=== PATIENT | female | born 1940 | race Caucasian/White ===

== ENCOUNTER 2021-01-06 12:19 | Emergency (ER) | payer MEDICARE ==
[2021-01-06 13:00] LABS: #Eosinphils 0.3 thou/uL (0.0-0.7); #Lymphocytes 2.1 thou/uL (1.20-3.40); #Monocytes 0.7 thou/uL (0.11-0.59); #Neutrophils 6.8 thou/uL (1.40-6.50); %Basophils 0.4 % (0.0-1.0); %Eosinophils 2.6 % (0.0-10.0); %Lymphocytes 21.3 % (21.0-51.0); %Neutrophils 68.8 % (42.0-75.0); Hemoglobin 10.7 g/dL (12.0-16.0); Mean Corpuscular Hemoglobin 26.6 pg (27.0-31.0); Mean Corpuscular Volume 83.1 fL (78.0-98.0); Mean Platelet Volume 6.6 fL (7.4-10.4); Platelet Count 315 thou/uL (130-400); RBC Distribution Width 13.6 % (11.5-14.5); Red Blood Cell (RBC) Count 4.01 mill/uL (4.20-5.40); White Blood Cell (WBC) Count 9.9 thou/uL (4.8-10.8)
[2021-01-06] MEDS ORDERED: Lorazepam 2 MG/ML VIAL ONE (13:03)
[2021-01-06] MEDS ORDERED: Ketorolac Tromethamine 30 MG/ML VIAL ONE (13:04)
[2021-01-06 13:20] LABS: ALT (SGPT) 7 U/L (8-55); AST (SGOT) 12 U/L (5-34); Albumin 3.3 g/dL (3.4-4.8); Alkaline Phosphatase 32 U/L (40-110); Anion Gap 14 mmol/L (10-20); BUN (Urea Nitrogen) 7 mg/dL (9.8-20.1); Bilirubin, Total 0.5 mg/dL (0.2-1.2); Calc. Creatinine Clearance 0 mL/min (70-130); Calcium 9.1 mg/dL (7.8-10.44); Carbon Dioxide 24 mmol/L (23-31); Chloride 103 mmol/L (98-107); Glucose 158 mg/dL (83-110); Potassium 3.9 mmol/L (3.5-5.1); Protein, Total 6.3 g/dL (5.8-8.1); Sodium 137 mmol/L (136-145)
[2021-01-06] MEDS ORDERED: Apixaban 5 MG TAB PO SCH (15:15)
== END 2021-01-06 15:34 | disposition home or self-care (01) ==
LOC: ERS 12:19
DX: I82.411 Acute embolism and thrombosis of right femoral vein (principal); I82.431 Acute embolism and thrombosis of right popliteal vein; I82.441 Acute embolism and thrombosis of right tibial vein; E11.9 Type 2 diabetes mellitus without complications; E78.00 Pure hypercholesterolemia, unspecified; Z87.891 Personal history of nicotine dependence; Z79.82 Long term (current) use of aspirin; Z79.84 Long term (current) use of oral hypoglycemic drugs; Z79.899 Other long term (current) drug therapy
CPT/HCPCS: 36415; 72170; 80053; 85025; 96374; 96375; J1885; J2060

== ENCOUNTER 2021-01-08 22:55 | Inpatient (IN) | payer MEDICARE ==
[2021-01-09 01:04] LABS: #Basophils 0.1 thou/uL (0.0-0.2); #Eosinphils 0.2 thou/uL (0.0-0.7); #Lymphocytes 1.6 thou/uL (1.20-3.40); #Monocytes 0.8 thou/uL (0.11-0.59); #Neutrophils 7.6 thou/uL (1.40-6.50); %Basophils 0.5 % (0.0-1.0); %Eosinophils 1.7 % (0.0-10.0); %Lymphocytes 15.4 % (21.0-51.0); %Monocytes 8.1 % (0.0-10.0); %Neutrophils 74.3 % (42.0-75.0); Hemoglobin 11.2 g/dL (12.0-16.0); Mean Corpuscular HGB CONC 32.6 g/dL (32.0-36.0); Mean Corpuscular Hemoglobin 26.7 pg (27.0-31.0); Mean Corpuscular Volume 81.8 fL (78.0-98.0); Mean Platelet Volume 6.9 fL (7.4-10.4); Platelet Count 308 thou/uL (130-400); RBC Distribution Width 13.7 % (11.5-14.5); Red Blood Cell (RBC) Count 4.19 mill/uL (4.20-5.40); White Blood Cell (WBC) Count 10.2 thou/uL (4.8-10.8)
[2021-01-09 01:14] LABS: INR-International Normal Ratio 1.4; Prothrombin Time 17.7 sec (12.0-14.7)
[2021-01-09 01:15] LABS: PTT 37.8 sec (22.9-36.1)
[2021-01-09 01:24] LABS: ALT (SGPT) Less than 7 U/L (8-55); AST (SGOT) 13 U/L (5-34); Albumin 3.4 g/dL (3.4-4.8); Alkaline Phosphatase 31 U/L (40-110); Anion Gap 12 mmol/L (10-20); BUN (Urea Nitrogen) 7 mg/dL (9.8-20.1); Bilirubin, Total 0.6 mg/dL (0.2-1.2); Calc. Creatinine Clearance 0 mL/min (70-130); Calcium 9.3 mg/dL (7.8-10.44); Carbon Dioxide 26 mmol/L (23-31); Chloride 102 mmol/L (98-107); Globulin 3.2 g/dL (2.4-3.5); Glucose 179 mg/dL (83-110); Potassium 3.7 mmol/L (3.5-5.1); Protein, Total 6.6 g/dL (5.8-8.1); Sodium 136 mmol/L (136-145)
[2021-01-09] MEDS ORDERED: Morphine 2 MG/ML VIAL ONE ×2 (03:33→08:31)
[2021-01-09] MEDS ORDERED: Ondansetron PF 4 MG/2 ML Vial ONE (03:48)
[2021-01-09] MEDS ORDERED: cefTRIAXone\\ROCEPHIN 2 GM VIAL ONE (08:31)
[2021-01-09] MEDS ORDERED: traMADol HCl 50 MG TAB PO PRN (08:32)
[2021-01-09] MEDS ORDERED: HumaLOG 300 UNITS/3 ML VIAL SC PRN ×2 (08:34)
[2021-01-09] MEDS ORDERED: Dextrose 50% Abboject 50 ML SYRINGE SLOW IVP PRN (08:34)
[2021-01-09] MEDS ORDERED: Dextrose 5% in Water 1,000 ML IV PRN (08:34)
[2021-01-09] MEDS ORDERED: hydrALAZINE 20 MG/ML VIAL SLOW IVP PRN (08:35)
[2021-01-09 09:11] LABS: Bilirubin Negative (Negative); Blood, Urine Negative (Negative); Clarity Clear (Clear); Glucose, Urine (Dipstick) 100 mg/dL (Negative); Ketone, Urine Negative (Negative); Leukocyte Negative Leu/uL (Negative); Nitrite Negative (Negative); Protein, Urine (Dipstick) Negative (Neg-Trace); Specific Gravity, Urine 1.019 (1.002-1.036); Urobilinogen Normal mg/dL (Less than 2)
[2021-01-09] MEDS ORDERED: Iopamidol-370 76% 500 ML 1 ML ONE (09:56)
[2021-01-09] MEDS ORDERED: Ondansetron ODT 4 MG TAB PO PRN (10:15)
[2021-01-09] MEDS ORDERED: Acetaminophen 325 MG TAB PO PRN (10:15)
[2021-01-09] MEDS ORDERED: Cyclobenzaprine 10 MG TAB PO SCH (10:15)
[2021-01-09] MEDS ORDERED: Cyclobenzaprine 10 MG TAB ONE (10:44)
[2021-01-09] MEDS ORDERED: Acetaminophen 500 MG TAB ONE (10:44)
[2021-01-09] MEDS: Acetaminophen 500 MG TAB PO SCH (10:53)
[2021-01-09 11:24] LABS: SARS-CoV-2 NAA Rapid Test Not Detected (NotDetected)
[2021-01-09 18:46] VITALS: BMI 22.6
[2021-01-10] MEDS: Acetaminophen 500 MG TAB PO SCH ×6 (00:46→20:59)
[2021-01-10 05:07] LABS: #Basophils 0.1 thou/uL (0.0-0.2); #Eosinphils 0.2 thou/uL (0.0-0.7); #Lymphocytes 1.6 thou/uL (1.20-3.40); #Monocytes 0.8 thou/uL (0.11-0.59); #Neutrophils 5.8 thou/uL (1.40-6.50); %Basophils 0.6 % (0.0-1.0); %Eosinophils 2.5 % (0.0-10.0); %Lymphocytes 18.7 % (21.0-51.0); %Monocytes 9.1 % (0.0-10.0); %Neutrophils 69.1 % (42.0-75.0); Hemoglobin 11.2 g/dL (12.0-16.0); Mean Corpuscular HGB CONC 29.4 g/dL (32.0-36.0); Mean Corpuscular Hemoglobin 24.2 pg (27.0-31.0); Mean Corpuscular Volume 82.2 fL (78.0-98.0); Mean Platelet Volume 7.1 fL (7.4-10.4); Platelet Count 338 thou/uL (130-400); RBC Distribution Width 13.6 % (11.5-14.5); Red Blood Cell (RBC) Count 4.62 mill/uL (4.20-5.40); White Blood Cell (WBC) Count 8.4 thou/uL (4.8-10.8)
[2021-01-10 05:23] LABS: Anion Gap 12 mmol/L (10-20); BUN (Urea Nitrogen) 7 mg/dL (9.8-20.1); Calc. Creatinine Clearance 80 mL/min (70-130); Calcium 9.3 mg/dL (7.8-10.44); Carbon Dioxide 29 mmol/L (23-31); Chloride 101 mmol/L (98-107); Glucose 162 mg/dL (83-110); Potassium 3.1 mmol/L (3.5-5.1); Sodium 139 mmol/L (136-145)
[2021-01-10] MEDS: traMADol HCl 50 MG TAB PO PRN ×2 (05:59→16:36)
[2021-01-10] MEDS: Apixaban 5 MG TAB PO SCH ×2 (09:25→20:59)
[2021-01-10] MEDS: Aspirin 81 mg Enteric Coated Tablet PO SCH (09:25)
[2021-01-11] MEDS: traMADol HCl 50 MG TAB PO PRN (02:28)
[2021-01-11] MEDS: Acetaminophen 500 MG TAB PO SCH ×3 (04:11→15:01)
[2021-01-11] MEDS: Apixaban 5 MG TAB PO SCH (09:22)
[2021-01-11] MEDS: Aspirin 81 mg Enteric Coated Tablet PO SCH (09:22)
[2021-01-11 15:40] VITALS: BP 126/59; TEMP 97.6
[2021-01-17] MEDS ORDERED: Apixaban 5 MG TAB PO SCH (09:00)
== END 2021-01-11 16:27 | DRG 552 ==
LOC: ERS 22:55 → ERHOLD 01-09 07:46 → 2NO 01-09 18:34 → OBSVTOIN 01-11 12:52
PROVIDERS: ADMIT Internal Medicine; ATTEND Internal Medicine
DX: M47.812 Spondylosis without myelopathy or radiculopathy, cervical region (principal); I82.411 Acute embolism and thrombosis of right femoral vein; I82.431 Acute embolism and thrombosis of right popliteal vein; Z20.822 Contact with and (suspected) exposure to COVID-19; I10 Essential (primary) hypertension; E11.9 Type 2 diabetes mellitus without complications; E78.5 Hyperlipidemia, unspecified; K21.9 Gastro-esophageal reflux disease without esophagitis; R35.0 Frequency of micturition; I16.0 Hypertensive urgency; R51.9 Headache, unspecified; Z79.899 Other long term (current) drug therapy; Z79.82 Long term (current) use of aspirin; Z79.01 Long term (current) use of anticoagulants; Z79.84 Long term (current) use of oral hypoglycemic drugs; Z90.49 Acquired absence of other specified parts of digestive tract; Z90.710 Acquired absence of both cervix and uterus; Z87.891 Personal history of nicotine dependence; Z88.1 Allergy status to other antibiotic agents
CPT/HCPCS: 36415; 36416; 70450; 70496; 72125; 80048; 80053; 81003; 85025; 85610; 85730; 86850; 86900; 86901; 96365; 96375; 96376; G0378; J0696; J1815; J2270; J2405; Q9967; U0002

== ENCOUNTER 2023-05-11 23:09 | Inpatient (IN) | payer MEDICARE ==
[2023-05-12 00:21] VITALS: BMI 24.0
[2023-05-12] MEDS ORDERED: Morphine 2 MG/ML VIAL SLOW IVP PRN (01:05)
[2023-05-12] MEDS ORDERED: Acetaminophen 500 MG TAB PO SCH (01:15)
[2023-05-12] MEDS: fentaNYL 50 mcg/mL 1 mL Vial SLOW IVP PRN (02:11)
[2023-05-12 04:58] LABS: #Eosinphils 0.1 thou/uL (0.0-0.7); #Monocytes 1.1 thou/uL (0.11-0.59); #Neutrophils 6.3 thou/uL (1.40-6.50); %Basophils 0.2 % (0.0-1.0); %Eosinophils 0.5 % (0.0-10.0); %Monocytes 10.9 % (0.0-10.0); %Neutrophils 64.1 % (42.0-75.0); Hematocrit 27.9 % (36.0-47.0); Hemoglobin 8.8 g/dL (12.0-16.0); Mean Corpuscular HGB CONC 31.5 g/dL (32.0-36.0); Mean Corpuscular Hemoglobin 25.5 pg (27.0-31.0); Mean Corpuscular Volume 80.9 fl (78.0-98.0); Mean Platelet Volume 9.4 fL (7.4-10.4); Platelet Count 233 10x3/uL (130-400); RBC Distribution Width 14.6 % (11.5-14.5); Red Blood Cell (RBC) Count 3.45 mill/uL (4.20-5.40); White Blood Cell (WBC) Count 9.8 10x3/uL (4.8-10.8)
[2023-05-12 05:28] LABS: Anion Gap 14 mmol/L (10-20); BUN (Urea Nitrogen) 15 mg/dL (9.8-20.1); Calc. Creatinine Clearance 64 mL/min (70-130); Calcium 8.2 mg/dL (7.8-10.44); Carbon Dioxide 23 mmol/L (23-31); Chloride 100 mmol/L (98-107); Estimated GFR 83; Glucose 159 mg/dL (83-110); Sodium 133 mmol/L (136-145)
[2023-05-12] MEDS ORDERED: Ipratropium/Albuterol 3 ML NEB NEB PRN (07:29)
[2023-05-12] MEDS ORDERED: Ondansetron ODT 4 MG TAB PO PRN (07:29)
[2023-05-12] MEDS ORDERED: Ondansetron PF 4 MG/2 ML Vial IVP PRN (07:29)
[2023-05-12] MEDS: Famotidine/PF 20 mg/2ml Vial SLOW IVP SCH (08:02)
[2023-05-12] MEDS: Sodium Chloride 0.9% 1,000 ML IV SCH (08:02)
[2023-05-12] MEDS ORDERED: Dextrose 5% in Water 1,000 ML IV PRN (08:21)
[2023-05-12] MEDS ORDERED: HumaLOG 300 UNITS/3 ML VIAL SC PRN (08:21)
[2023-05-12] MEDS ORDERED: Glucagon 1 MG/ML KIT IM PRN (08:21)
[2023-05-12] MEDS ORDERED: Dextrose 50% Abboject 50 ML SYRINGE SLOW IVP PRN (08:21)
[2023-05-12] MEDS ORDERED: CEFAZOLIN 2 GM in Sodium Chloride 0.9% 100 ML IVPB SCH (10:00)
[2023-05-12] MEDS: Cyclobenzaprine 10 MG TAB PO PRN (10:41)
[2023-05-12] MEDS: traMADol HCl 50 MG TAB PO SCH (13:22)
[2023-05-12] MEDS ORDERED: CEFAZOLIN 2 GM VIAL ONE (13:42)
[2023-05-12] MEDS ORDERED: Sodium Chloride 0.9% 100 ML ONE (13:42)
[2023-05-12] MEDS ORDERED: PROPOFOL 20 ML ONE (14:01)
[2023-05-12] MEDS ORDERED: fentaNYL 50 mcg/mL 1 mL Vial ONE ×4 (14:45→16:38)
[2023-05-12] MEDS ORDERED: Ondansetron PF 4 MG/2 ML Vial ONE (15:56)
[2023-05-12] MEDS ORDERED: ePHEDrine Sulfate 50 MG/10 ML VIAL ONE (16:04)
[2023-05-12] MEDS ORDERED: Promethazine HCl 25 MG/ML VIAL IM PRN (16:19)
[2023-05-12] MEDS ORDERED: Ondansetron HCl/PF 4 MG/2 ML Vial IVP PRN (16:19)
[2023-05-12] MEDS: Ferrous Sulfate 325 MG TAB PO SCH (17:08)
[2023-05-12] MEDS: Ascorbic Acid 500 mg Chewable Tablet PO SCH (20:56)
[2023-05-12] MEDS: Senokot S 8.6-50 MG TAB PO SCH (20:57)
[2023-05-12] MEDS: CEFAZOLIN 2 GM in Sodium Chloride 0.9% 100 ML IVPB SCH (21:32)
[2023-05-13] MEDS: traMADol HCl 50 MG TAB PO PRN (05:21)
[2023-05-13 05:43] LABS: %Basophils 0.1 % (0.0-1.0); %Eosinophils 0.1 % (0.0-10.0); %Lymphocytes 11.3 % (21.0-51.0); %Neutrophils 77.2 % (42.0-75.0); Hematocrit 24.2 % (36.0-47.0); Hemoglobin 7.5 g/dL (12.0-16.0); Mean Platelet Volume 9.7 fL (7.4-10.4); Platelet Count 194 10x3/uL (130-400); RBC Distribution Width 14.9 % (11.5-14.5); Red Blood Cell (RBC) Count 2.88 mill/uL (4.20-5.40); White Blood Cell (WBC) Count 9.1 10x3/uL (4.8-10.8)
[2023-05-13 06:20] LABS: Anion Gap 10 mmol/L (10-20); BUN (Urea Nitrogen) 10 mg/dL (9.8-20.1); Calc. Creatinine Clearance 76 mL/min (70-130); Calcium 7.9 mg/dL (7.8-10.44); Carbon Dioxide 25 mmol/L (23-31); Chloride 106 mmol/L (98-107); Estimated GFR 89; Glucose 188 mg/dL (83-110); Potassium 3.7 mmol/L (3.5-5.1); Sodium 137 mmol/L (136-145)
[2023-05-13] MEDS ORDERED: Cyclobenzaprine 10 MG TAB PO PRN (08:28)
[2023-05-13] MEDS: Gabapentin 100 MG CAP PO SCH (09:35)
[2023-05-13] MEDS: Polyethylene Glycol 3350 17 GM Packet PO SCH (09:38)
[2023-05-13] MEDS: Ketorolac Tromethamine 30 MG (1 mL) VIAL IVP SCH (13:49)
[2023-05-13] MEDS: Senokot S 8.6-50 MG TAB PO SCH (21:40)
[2023-05-14 04:27] LABS: #Eosinphils 0.1 thou/uL (0.0-0.7); #Monocytes 1.1 thou/uL (0.11-0.59); #Neutrophils 6.4 thou/uL (1.40-6.50); %Basophils 0.1 % (0.0-1.0); %Eosinophils 0.7 % (0.0-10.0); %Monocytes 11.4 % (0.0-10.0); %Neutrophils 65.6 % (42.0-75.0); Hematocrit 20.6 % (36.0-47.0); Hemoglobin 6.4 g/dL (12.0-16.0); Mean Corpuscular HGB CONC 31.1 g/dL (32.0-36.0); Mean Corpuscular Hemoglobin 26.4 pg (27.0-31.0); Mean Corpuscular Volume 85.1 fl (78.0-98.0); Mean Platelet Volume 9.6 fL (7.4-10.4); Platelet Count 163 10x3/uL (130-400); RBC Distribution Width 14.6 % (11.5-14.5); Red Blood Cell (RBC) Count 2.42 mill/uL (4.20-5.40); White Blood Cell (WBC) Count 9.7 10x3/uL (4.8-10.8)
[2023-05-14] MEDS: Polyethylene Glycol 3350 17 GM Packet PO SCH (11:13)
[2023-05-15 08:06] LABS: #Eosinphils 0.3 thou/uL (0.0-0.7); #Monocytes 0.9 thou/uL (0.11-0.59); #Neutrophils 5.9 thou/uL (1.40-6.50); %Basophils 0.1 % (0.0-1.0); %Eosinophils 3.3 % (0.0-10.0); %Lymphocytes 19.6 % (21.0-51.0); %Monocytes 9.9 % (0.0-10.0); %Neutrophils 66.9 % (42.0-75.0); Hemoglobin 7.6 g/dL (12.0-16.0); Mean Corpuscular HGB CONC 31.7 g/dL (32.0-36.0); Mean Corpuscular Volume 85.1 fl (78.0-98.0); Mean Platelet Volume 9.8 fL (7.4-10.4); Platelet Count 178 10x3/uL (130-400); RBC Distribution Width 14.9 % (11.5-14.5); Red Blood Cell (RBC) Count 2.82 mill/uL (4.20-5.40); White Blood Cell (WBC) Count 8.8 10x3/uL (4.8-10.8)
[2023-05-15] MEDS ORDERED: Non-Formulary Item 1 EACH (Atorvastatin Calcium [Atorvastatin Calcium] 80 MG Tablet) PO SCH (09:00)
[2023-05-15] MEDS ORDERED: Non-Formulary Item 1 EACH (Lisinopril/Hydrochlorothiazide [Lisinopril-Hctz 10-12.5 Mg Tab PO SCH (09:00)
[2023-05-15] MEDS: Apixaban 5 MG TAB PO SCH (09:39)
[2023-05-15] MEDS: CO Q-10 CAPSULE 100 MG PO SCH (09:39)
[2023-05-15] MEDS: Hydrochlorothiazide 25 MG TAB PO SCH (09:40)
[2023-05-15] MEDS: Lisinopril 5 MG TAB PO SCH (09:40)
[2023-05-15 11:45] VITALS: TEMP 99
[2023-05-15] MEDS: Acetaminophen 500 MG TAB PO PRN (12:30)
[2023-05-15 15:27] VITALS: BP 146/70
[2023-05-15] MEDS ORDERED: Atorvastatin Calcium 40 MG TAB PO SCH (21:00)
== END 2023-05-15 20:30 | DRG 481 ==
LOC: SURG A 23:55
PROVIDERS: ADMIT Surgery; ATTEND Surgery
PROC: 0QSB04Z Reposition Right Lower Femur with Internal Fixation Device, Open Approach (ICD-10-PCS; principal; 2023-05-12)
PROC: 3E033XZ Introduction of Vasopressor into Peripheral Vein, Percutaneous Approach (ICD-10-PCS; 2023-05-12)
PROC: 30233N1 Transfusion of Nonautologous Red Blood Cells into Peripheral Vein, Percutaneous Approach (ICD-10-PCS; 2023-05-14)
DX: M97.01XA Periprosthetic fracture around internal prosthetic right hip joint, initial encounter (principal); D62 Acute posthemorrhagic anemia; G89.11 Acute pain due to trauma; W18.30XA Fall on same level, unspecified, initial encounter; E11.9 Type 2 diabetes mellitus without complications; I10 Essential (primary) hypertension; K21.9 Gastro-esophageal reflux disease without esophagitis; Z90.710 Acquired absence of both cervix and uterus; Y92.040 Kitchen in boarding-house as the place of occurrence of the external cause; Z90.49 Acquired absence of other specified parts of digestive tract; Z98.890 Other specified postprocedural states
CPT/HCPCS: 36415; 36416; 36430; 80048; 85025; 85730; 86850; 86900; 86901; 93005; 93010; 96374; 96375; J1885; J2270; J2405; J2704; J3010; J3490; J7050; P9016; S0028

== ENCOUNTER → 2023-12-27 | Day surgery (SDC) | payer MEDICARE | LOC: BICULT 12:22 | PROVIDERS: ATTEND Internal Medicine | PROC: 0H9T3ZX Drainage of Right Breast, Percutaneous Approach, Diagnostic (ICD-10-PCS; principal; 2023-12-27) | DX: C50.811 Malignant neoplasm of overlapping sites of right female breast (principal) | CPT/HCPCS: 19083; 88305; 88341; 88342; 88360; 88361 ==

== ENCOUNTER 2024-02-11 06:49 | Day surgery (SDC) | payer MEDICARE ==
[2024-02-06 12:58] VITALS: BMI 26.5
[2024-02-11] MEDS ORDERED: PROPOFOL 40 ML ONE (10:11)
[2024-02-11] MEDS ORDERED: EPINEPHrine 1 MG/ML VIAL ONE (10:11)
[2024-02-11] MEDS ORDERED: Ondansetron PF 4 MG/2 ML Vial ONE (10:11)
[2024-02-11] MEDS ORDERED: fentaNYL PF 100 MCG/2 ML SYRINGE ONE (10:11)
[2024-02-11] MEDS ORDERED: Lidocaine 1% PF 5 ML VIAL ONE (10:11)
[2024-02-11] MEDS ORDERED: Lidocaine 2% PF 5 ML VIAL ONE (10:11)
[2024-02-11] MEDS ORDERED: Dexamethasone 4 mg/ml Vial ONE (10:11)
[2024-02-11] MEDS ORDERED: Bupivacaine 0.25% HCL 30 ML VIAL ONE (10:11)
[2024-02-11] MEDS ORDERED: CEFAZOLIN 2 GM VIAL ONE (10:28)
[2024-02-11] MEDS ORDERED: Propofol 1,000 MG/100 ML VIAL IV ONE (10:54)
[2024-02-11] MEDS ORDERED: fentaNYL 50 mcg/mL 1 mL Vial ONE (12:14)
== END 2024-02-11 13:23 | disposition home or self-care (01) ==
LOC: SDC 06:49
PROVIDERS: ATTEND Surgery
PROC: 0HBT0ZZ Excision of Right Breast, Open Approach (ICD-10-PCS; principal; 2024-02-11)
DX: C50.811 Malignant neoplasm of overlapping sites of right female breast (principal); E11.9 Type 2 diabetes mellitus without complications; D64.9 Anemia, unspecified; Z90.710 Acquired absence of both cervix and uterus; Z90.49 Acquired absence of other specified parts of digestive tract; Z87.891 Personal history of nicotine dependence; Z98.51 Tubal ligation status; Z98.890 Other specified postprocedural states; Z91.048 Other nonmedicinal substance allergy status; Z91.040 Latex allergy status; Z88.1 Allergy status to other antibiotic agents; Z88.2 Allergy status to sulfonamides; Z88.5 Allergy status to narcotic agent; Z79.82 Long term (current) use of aspirin; Z79.84 Long term (current) use of oral hypoglycemic drugs; Z79.899 Other long term (current) drug therapy
CPT/HCPCS: 19281; 19301; 76098; J0171; J0665; J1100; J2405; J2704 ×2; J3010; 88307

== ENCOUNTER 2025-01-01 13:24 | Emergency (ER) | payer MEDICARE ==
[2025-01-01 14:25] LABS: #Basophils 0.04 10x3/uL (0.0-0.2); #Eosinophils 0.13 10x3/uL (0.0-0.7); #Monocytes 0.51 10x3/uL (0.11-0.59); #Neutrophils 6.26 10x3/uL (1.40-6.50); %Basophils 0.4 % (0.0-1.0); %Eosinophils 1.4 % (0.0-10.0); %Lymphocytes 22.7 % (21.0-51.0); %Monocytes 5.7 % (0.0-10.0); %Neutrophils 69.6 % (42.0-75.0); Hematocrit 36.6 % (36.0-47.0); Hemoglobin 11.5 g/dL (12.0-16.0); Mean Corpuscular Hemoglobin 25.7 pg (27.0-31.0); Mean Corpuscular Volume 81.9 fL (78.0-98.0); Platelet Count 288 10x3/uL (130-400); Red Blood Cell (RBC) Count 4.47 mill/uL (4.20-5.40); White Blood Cell (WBC) Count 9.00 10x3/uL (4.8-10.8)
[2025-01-01 14:44] LABS: ALT (SGPT) 10 U/L (Less than 34); AST (SGOT) 19 U/L (11-34); Albumin 3.6 g/dL (3.1-4.5); Alkaline Phosphatase 31 U/L (40-110); Anion Gap 15 mmol/L (10-20); BUN (Urea Nitrogen) 10 mg/dL (9.8-20.1); Bilirubin, Total 0.5 mg/dL (0.3-1.2); Calc. Creatinine Clearance 0 mL/min (70-130); Calcium 9.3 mg/dL (7.8-10.44); Carbon Dioxide 23 mmol/L (23-31); Chloride 98 mmol/L (98-107); Globulin 3.7 g/dL (2.4-3.5); Glucose 156 mg/dL (83-110); Potassium 4.4 mmol/L (3.5-5.1); Sodium 132 mmol/L (136-145)
== END 2025-01-01 16:00 | disposition home or self-care (01) ==
LOC: ERS 13:24
DX: S46.912A Strain of unspecified muscle, fascia and tendon at shoulder and upper arm level, left arm, initial encounter (principal); E11.9 Type 2 diabetes mellitus without complications; X50.0XXA Overexertion from strenuous movement or load, initial encounter; Z87.891 Personal history of nicotine dependence
CPT/HCPCS: 36415; 80053; 84484; 85025; 99283